=== PATIENT | male | born 1965 | race Caucasian/White ===

== ENCOUNTER 2020-12-01 12:18 | Emergency (ER) | payer SELFPAY ==
[2020-12-01] MEDS ORDERED: Ondansetron 4 MG/2 ML SDV IVPUSH ONE (13:18)
[2020-12-01] MEDS ORDERED: Sodium Chloride 0.9% 1,000 ML IV ONE (13:18)
[2020-12-01] MEDS ORDERED: Ketorolac 30 MG/ML SDV IVPUSH ONE (13:18)
--- NOTE | 2020-12-01 13:58 | EDM.PDOC ---
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, felt okay on getting up today, ate baloney sandwich okay for bfast at 9:30a he had to quite work, pain too severe, slight N, no V no f/c/d, no cough went home and ate some crackers, not better, came here 1w ago he had loose BMs that resolved, says he had "a stomach bug" has chronic back pain, no back surgery, MEDS: takes baclofen 20 mg and nabumatone 650 mg, used hc/apap in past, ran out several months ago, from [place] physician MRI l-spine 09-11-17 with lumbar spondylosis lives in [place], has girlfriend there, no work in [place], 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 12/01/20 [Rx] Past Medical History - Past Health History Medical/Surgical History: Denies Medical/Surgical History ED ROS GENERAL - Review of Systems Review Of Systems: See Below Constitutional: Reports: No Symptoms HEENT: Reports: No Symptoms Respiratory: Reports: No Symptoms Cardiovascular: Reports: Chest Pain Endocrine: Reports: No Symptoms GI/Abdominal: Reports: Abdominal Pain, Nausea. Denies: Vomiting : Reports: No Symptoms Musculoskeletal: Reports: No Symptoms Skin: Reports: No Symptoms Neurological: Reports: No Symptoms Psychiatric: Reports: No Symptoms Hematologic/Lymphatic: Reports: No Symptoms Immunologic: Reports: No Symptoms ED EXAM, GI/ABD - Physical Exam Exam: See Below Exam Limited By: No Limitations General Appearance: Alert, WD/WN, No Apparent Distress, Other (alert, muscular, walks and lies easily, NAD) Nose: Normal Inspection, Normal Mucosa, No Blood Throat/Mouth: Normal Inspection, Normal Lips, Normal Teeth, Normal Gums, Normal Oropharynx, Normal Voice, No Airway Compromise Head: Atraumatic, Normocephalic Neck: Normal Inspection, Supple, Non-Tender, Full Range of Motion. No: Lymphadenopathy (R), Lymphadenopathy (L) Respiratory/Chest: No Respiratory Distress, Lungs Clear, Normal Breath Sounds, No Accessory Muscle Use, Other (chest wall NT) Cardiovascular: Regular Rate, Rhythm, No Edema, No Gallop, No Murmur GI/Abdominal Exam: Normal Bowel Sounds, Soft, No Organomegaly, No Distention, Other (mild tender across lower abd with L>R, mild tender epigastrium/LUQ under ribs/L flank, mild CVAT b/l) Back Exam: Normal Inspection, Full Range of Motion, CVA Tenderness (L) Extremities: Normal Inspection, Normal Range of Motion, Non-Tender, No Pedal Edema Neurological: Alert, Oriented, CN II-XII Intact, Normal Cognition, No Motor/Sensory Deficits Psychiatric: Normal Affect, Normal Mood Skin Exam: Warm, Dry, Intact, Normal Color, No Rash Lymphatic: No Adenopathy Course - Orders/Labs/Meds Orders: Active Orders 24 hr Category Date Time Status EKG Documentation Completion [RC] ASDIRECTED Care 12/01/20 13:19 Active EKG 12 Lead [EK] Routine Ther 12/01/20 13:18 Ordered Labs: Laboratory Tests 12/01/20 12/01/20 12/01/20 Range/Units 13:40 13:41 13:41 WBC 11.1 H (3.2-10.1) x10-3/uL RBC 4.14 (3.90-5.90) x10(6)uL Hgb 13.3 (12.9-17.7) g/dL Hct 39.3 (38.3-50.1) % MCV 95.0 (80.8-98.7) fL MCH 32.1 (27.0-33.3) pg MCHC 33.8 (28.7-35.3) g/dL RDW 13.9 (12.4-15.0) % Plt Count 372 (117-477) x10(3)uL MPV 7.1 (6.7-11.0) fL Neut % (Auto) 67.0 (40.3-71.8) % Lymph % (Auto) 21.6 (15.8-45.3) % Isabela % (Auto) 7.7 (5.5-15.2) % Eos % (Auto) 3.0 (0.1-6.8) % Baso % (Auto) 0.7 (0.3-3.8) % Neut # (Auto) 7.4 H (1.7-6.9) x10-3/uL Lymph # (Auto) 2.4 (0.5-4.5) x10-3/uL Isabela # (Auto) 0.9 (0.0-1.2) x10-3/uL Eos # (Auto) 0.3 (0.0-0.6) x10-3/uL Baso # (Auto) 0.1 (0.0-0.3) x10-3/uL Sodium 147 H (135-145) mmol/L Potassium 4.1 (3.5-5.3) mmol/L Chloride 108 (100-110) mmol/L Carbon Dioxide 25 (21-32) mmol/L BUN 26 H (7-18) mg/dL Creatinine 1.6 H (0.70-1.30) mg/dL Est Cr Clr Drug Dosing TNP Estimated GFR (MDRD) 45 L (>60) BUN/Creatinine Ratio 16.3 (9-20) Glucose 95 (80-116) mg/dL Calcium 8.7 (8.6-10.2) mg/dL Total Bilirubin 0.3 (0.1-1.3) mg/dL AST 26 H (5-25) IU/L ALT 37 H (12-36) U/L Alkaline Phosphatase 72 (56-112) IU/L Troponin I (4.0-60.3) pg/mL C-Reactive Protein (0.5-0.9) mg/dL Total Protein 6.8 (6.0-8.0) g/dL Albumin 3.6 (3.5-5.2) g/dL Globulin 3.2 g/dL Albumin/Globulin Ratio 1.1 Lipase (73-393) U/L Urine Color Yellow (YELLOW) Urine Appearance Clear (CLEAR) Urine pH 5.0 (5.0-6.5) Ur Specific Randolph 1.020 (1.010-1.025) Urine Protein Negative (NEGATIVE) mg/dL Urine Glucose (UA) Normal (NORMAL) mg/dL Urine Ketones Negative (NEGATIVE) mg/dL Urine Occult Blood Trace (NEGATIVE) Urine Nitrite Negative (NEGATIVE) Urine Bilirubin Negative (NEGATIVE) Urine Urobilinogen Normal (NEGATIVE) mg/dL Ur Leukocyte Esterase Negative (NEGATIVE) Urine RBC 0-5 (0-5) Urine WBC 0-5 (0-5) Ur Squamous Epith Cells Occasional (NS,R,O) Urine Bacteria Few H (NS) 12/01/20 Range/Units 13:41 WBC (3.2-10.1) x10-3/uL RBC (3.90-5.90) x10(6)uL Hgb (12.9-17.7) g/dL Hct (38.3-50.1) % MCV (80.8-98.7) fL MCH (27.0-33.3) pg MCHC (28.7-35.3) g/dL RDW (12.4-15.0) % Plt Count (117-477) x10(3)uL MPV (6.7-11.0) fL Neut % (Auto) (40.3-71.8) % Lymph % (Auto) (15.8-45.3) % Isabela % (Auto) (5.5-15.2) % Eos % (Auto) (0.1-6.8) % Baso % (Auto) (0.3-3.8) % Neut # (Auto) (1.7-6.9) x10-3/uL Lymph # (Auto) (0.5-4.5) x10-3/uL Isabela # (Auto) (0.0-1.2) x10-3/uL Eos # (Auto) (0.0-0.6) x10-3/uL Baso # (Auto) (0.0-0.3) x10-3/uL Sodium (135-145) mmol/L Potassium (3.5-5.3) mmol/L Chloride (100-110) mmol/L Carbon Dioxide (21-32) mmol/L BUN (7-18) mg/dL Creatinine (0.70-1.30) mg/dL Est Cr Clr Drug Dosing Estimated GFR (MDRD) (>60) BUN/Creatinine Ratio (9-20) Glucose (80-116) mg/dL Calcium (8.6-10.2) mg/dL Total Bilirubin (0.1-1.3) mg/dL AST (5-25) IU/L ALT (12-36) U/L Alkaline Phosphatase (56-112) IU/L Troponin I 4.0 (4.0-60.3) pg/mL C-Reactive Protein 0.4 L (0.5-0.9) mg/dL Total Protein (6.0-8.0) g/dL Albumin (3.5-5.2) g/dL Globulin g/dL Albumin/Globulin Ratio Lipase 84 (73-393) U/L Urine Color (YELLOW) Urine Appearance (CLEAR) Urine pH (5.0-6.5) Ur Specific Randolph (1.010-1.025) Urine Protein (NEGATIVE) mg/dL Urine Glucose (UA) (NORMAL) mg/dL Urine Ketones (NEGATIVE) mg/dL Urine Occult Blood (NEGATIVE) Urine Nitrite (NEGATIVE) Urine Bilirubin (NEGATIVE) Urine Urobilinogen (NEGATIVE) mg/dL Ur Leukocyte Esterase (NEGATIVE) Urine RBC (0-5) Urine WBC (0-5) Ur Squamous Epith Cells (NS,R,O) Urine Bacteria (NS) Meds: Medications Discontinued Medications Generic Name Dose Route Start Last Admin Trade Name Huberq PRN Reason Stop Dose Admin Al Hydroxide/Mg Hydroxide 30 0 ml 12/01/20 16:00 12/01/20 16:10 ml/ Lidocaine HCl 15 ml PO 12/01/20 16:01 45 ml ONETIME ONE Administration Diatrizoate Meglum/Diatrizoate Sod 30 ml 12/01/20 14:49 12/01/20 15:15 Diatrizoate Meglumine/Diatrizoate Sodium 37% 30 Ml Bottle PO 12/01/20 14:50 30 ml . DIRECTED ONE Administration Sodium Chloride 1,000 mls @ 999 mls/hr 12/01/20 13:18 12/01/20 13:52 Normal Saline IV 12/01/20 14:18 999 mls/hr .BOLUS ONE Administration Iopamidol 75 ml 12/01/20 14:49 12/01/20 15:15 Iopamidol 755 Mg/Ml 75 Ml Bottle IV 12/01/20 14:50 75 ml ONETIME ONE Administration Ketorolac Tromethamine 30 mg 12/01/20 13:18 12/01/20 13:51 Ketorolac 30 Mg/Ml Sdv IVPUSH 12/01/20 13:19 30 mg ONETIME ONE Administration Ondansetron HCl 4 mg 12/01/20 13:18 12/01/20 13:51 Ondansetron 4 Mg/2 Ml Sdv IVPUSH 12/01/20 13:19 4 mg ONETIME ONE Administration - Re-Assessments/Exams Free Text/Narrative Re-Assessment/Exam: 12/01/20 16:29 pt states he is not feeling much better, given GI cocktail which did not help does look better, no definite etiology found for his symptoms, does have a moderate amount of stool throughout his colon, suspect colon cramping is a contributing factor, cannot exclude a mild gastritis/GERD, will tx for both of these possibilities CT abd/pelvis with IV contrast did show small round areas of inc'd density of 1- 2 cm in the right lobe of the liver c/w hemangiomas, which was d/w Dr Bush, further imaging can be considered if pt has additional symptoms or an increase in LFTs (very mild increase now), additional imaging could include sequential CT with contrast (to observe filling of hemangioma) vs repeat imaging/LFTs in 2 months to look for any change Departure - Departure Time of Disposition: 16:20 Disposition: Home, Self-Care 01 Condition: Good Clinical Impression: Upper abdominal pain, Colon spasm, Stomach spasm, Dehydration, Renal insufficiency - Discharge Information *PRESCRIPTION DRUG MONITORING PROGRAM REVIEWED*: Not Applicable *COPY OF PRESCRIPTION DRUG MONITORING REPORT IN PATIENT [place]: Not Applicable Prescriptions: Omeprazole 20 mg PO 10 #20 tablet.dr Instructions: Dehydration, Adult Referrals: PCP,Not In Area [Primary Care Provider] - Additional Instructions: To decrease acid production (and decrease stomach spasm), take omeprazole 20 mg 1 tab daily for 10 days. To coat and protect the lining of the stomach, take liquid antacid 30 ml every 4 hours as needed. To relieve spasm of the colon and clean out the colon, drink a 10-oz bottle of magnesium citrate. Drink a 2nd bottle in 6-12 hours. Increase fluids. See a primary care physician next week for further evaluation and recommendations. You will need your kidney tests rechecked and possibly additional tests depending on how your are doing. - My Orders Last 24 Hours: My Active Orders 12/01/20 13:18 EKG 12 Lead [EK] Routine 12/01/20 13:19 EKG Documentation Completion [RC] ASDIRECTED - Assessment/Plan Last 24 Hours: My Active Orders 12/01/20 13:18 EKG 12 Lead [EK] Routine 12/01/20 13:19 EKG Documentation Completion [RC] ASDIRECTED
[2020-12-01] MEDS ORDERED: Iopamidol 755 Mg/ML 75 ML Bottle IV ONE (14:49)
[2020-12-01] MEDS ORDERED: Diatrizoate Meglumine/Diatrizoate Sodium 37% 30 ML Bottle PO ONE (14:49)
[2020-12-01] MEDS ORDERED: Alum Hydroxide/Mag Hydroxide 30 ML, Lidocaine 2% 15 ML PO ONE ×2 (16:00)
--- NOTE | 2020-12-01 16:07 | CT ---
INDICATION: Pain across upper abdomen and lower chest, left greater than right. Mild lower abdominal tenderness bilaterally. Question lymphoma. CT ABDOMEN AND PELVIS WITH CONTRAST: Spiral 3.75 mm axial sections were obtained through the abdomen and pelvis with oral and IV contrast (75 mL Isovue- 370 at 2 mL/second) with coronal and sagittal reconstructions - examination was obtained 12/01/20 - no comparisons. Total exam DLP was 786.68 milligray-cm. The lower lung arguello and pleural space visualized showed no definite active infiltrate or effusion. In the lingula, there is an area of density which likely is fibrotic in nature. The heart did not appear enlarged. No pericardial effusion was seen. Low-density lesion in the right lobe of the liver, axial image 16 near the dome of the diaphragm, may represent a hemangioma or a cyst, although other etiology cannot be excluded. A similar lesion is noted posteromedially in the right lobe on axial image 23 and slightly larger lesion in the right lobe more inferiorly on axial image 37 with the largest measuring approximately 2 cm in maximum diameter. The liver density appeared to be normal. The gallbladder was contracted. No biliary tree dilatation was noted - common bile duct appeared normal in caliber. The adrenal glands, spleen and pancreas appear to be normal. Except for what appears to be a scar in the lower pole cortex of the left kidney, and a small calculus in the upper pole of the right kidney, the kidneys had a fairly normal appearance. Minimal aortic calcification and iliac and femoral artery calcifications are noted. There are some calcifications noted in the prostate which did not appearance grossly enlarged. The urinary bladder appeared grossly normal. The appendix is not definitely visualized. No evidence of free air or bowel obstruction was identified. Retroperitoneal lymphadenopathy is mild and nonspecific with no definite retroperitoneal mass. Descending and sigmoid diverticulosis is noted without definite evidence of diverticulitis. Intramedullary ramiro is noted at the right femur. Hypertrophic degenerative changes are noted at the L3 through S1 lumbosacral spine with degenerative disc disease suggested at L3-L4 to a minimal degree and more severe degenerative disc disease with virtually no remaining joint space and vacuum disc phenomenon noted at L4-L5 and L5-S1 with some narrowing of neural foramina due to hypertrophic changes off vertebral bodies anteriorly and posteriorly. No abdominal mass, organomegaly or free fluid collections were identified. No finding to strongly suggest lymphoma was identified. IMPRESSION: 1. Minimal scar at the lingula is suggested. 2. Descending and sigmoid diverticulosis without definite evidence of diverticulitis. 3. Mild ASD. 4. Appendix not definitely visualized but no evidence of appendicitis was identified. 5. Degenerative changes and disc disease lumbosacral spine. 6. Low-density lesions in the liver, etiology indeterminate but may represent hemangiomas. More detailed examination of the liver could be obtained with sequential imaging of the liver after IV contrast. 7. Minimal renal calcinosis upper pole right kidney. 8. Probable renal cortical scar lower pole left kidney. Report was called to Dr. Venegas at 1542 hours 12/01/20. [facility]
[2020-12-01 16:45] VITALS: BP 146/74; PULSE 74
== END 2020-12-01 16:40 | disposition home or self-care (01) ==
LOC: FB.ED 12:18
DX: K58.9 Irritable bowel syndrome, unspecified (principal); K31.89 Other diseases of stomach and duodenum; E86.0 Dehydration; N28.9 Disorder of kidney and ureter, unspecified
CPT/HCPCS: 36415; 74177; 80053; 81001; 83690; 84484; 85025; 86140; 93005; 96374; 96375; 99285; A9270; J1885; J2405; J7030; Q9963; Q9967